=== PATIENT | female | born 1945 | race Caucasian/White ===

== ENCOUNTER 2019-09-04 20:21 | Inpatient (IN) | payer MEDICARE, OTHER, SELFPAY ==
[2019-09-04 20:25] VITALS: BP 130/108; PULSE 103; RESP 14; TEMP 36.8; O2SAT 95; BMI 23.8
--- NOTE | 2019-09-04 20:26 | ED_ITS ---
Entered by Kristin Urena, acting as scribe for HPI - Altered Mental Status General: Chief Complaint: Altered Mental Status Stated Complaint: ams Time Seen by Provider: 09/04/19 20:26 Source: family Mode of arrival: wheelchair Limitations: altered mental status History of Present Illness: HPI narrative: 74 yo f came to the er with pov for altered mental status and syncope episode. 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 said that she has not really been responsive, he is not sure if he had a seizure or had a syncope episode. Pt has had some difficulty breathing on arrival. is adamant about her getting narcotics. She takes various narcotics at home regularly and fax it he said this began about an hour to an hour and a half after her last dose of Percocet which was 30 mg. Review of Systems General: Reports: ROS unobtainable due to mental status and other (negative unless marked) Const: Denies: fever Eyes: Denies: change in vision Resp: Reports: shortness of breath Skin/Breast: Denies: rash PFSH ED PFSH: Medical History (Updated 09/07/19 @ 17:34 by Adam Sy DO) Carotid atherosclerosis Coronary artery disease Diabetes mellitus Diastolic heart failure GERD (gastroesophageal reflux disease) History of hepatitis A History of Lyme disease HTN (hypertension) Hyperlipidemia Sleep apnea Sleep apnea due to high altitude DELETE Steatohepatitis Witnessed seizure Surgical History S/P angioplasty S/P appendectomy S/P bladder repair S/P hysterectomy S/P oophorectomy S/P rotator cuff repair Family History Father , Lung Cancer age 56 Cancer Mother , Pancreatic Cancer age 34 Cancer Social History Smoking and tobacco status: former smoker Physical Exam Const: GENERAL APPEARANCE: combative, disheveled, lethargic and frail appearing ORIENTATION/CONSCIOUSNESS: Yes lethargic OTHER: Appears postictal HENMT: COMMON NORMALS: normocephalic, head/scalp atraumatic, hearing grossly normal bilaterally, external ears normal, EAC's normal, TM's normal bilaterally, nasal mucous membranes and turbinates normal, moist oral mucous membranes and oropharynx normal HEAD & SCALP: normocephalic and atraumatic NOSE: nasal mucous membranes and turbinates normal EXTERNAL EAR: Yes external ears normal EXTERNAL AUDITORY CANAL: EAC's normal TYMPANIC MEMBRANE: TM's normal bilaterally Eye: COMMON NORMALS: PERRL, EOMs intact bilaterally, conjunctivae normal and no scleral icterus CONJUNCTIVA: Yes conjunctivae normal PUPIL: Yes PERRL Neck/C-Spine: COMMON NORMALS: full ROM, no lymphadenopathy, supple and no JVD Lymph: LYMPHATIC: no lymphadenopathy noted and no lymphedema noted Resp: COMMON NORMALS: normal respiratory effort, no retractions, no use of accessory muscles and clear to auscultation bilaterally AUSCULTATION: clear to auscultation bilaterally Cardio: COMMON NORMALS: no JVD, regular rate, regular rhythm and no murmurs RATE: regular rate RHYTHM: regular rhythm GI: COMMON NORMALS: soft to palpation and no hepatosplenomegaly AUSCULTATION: Yes normoactive bowel sounds PALPATION: Yes soft, No tender, No guarding and Yes no hepatosplenomegaly Extremity: COMMON NORMALS: normal to inspection, normal capillary refill, no clubbing, cyanosis or edema, no calf tenderness and no pedal edema Neuro: SENSORIUM/ORIENTATION: Yes lethargic Skin: COMMON NORMALS: no rashes or lesions noted GENERAL SKIN EXAM: no rashes or lesions noted Course ED course: While we are completing work-up patient had a witnessed seizure. She is sitting on the commode at the time she is placed back into bed and given 2 mg Ativan and loaded with Keppra. She will be admitted for new onset seizures. Suspicious that her narcotic use may play a role in this. Vital Signs: Vital signs: Vital Signs Temperature 98.6 F 09/07/19 15:27 Pulse Rate 88 09/07/19 15:27 Respiratory Rate 16 09/07/19 15:27 Blood Pressure 119/68 09/07/19 15:27 Pulse Oximetry 98 09/07/19 15:27 MDM - Altered Mental Status Lab Data: Labs: Lab Results 09/04/19 09/04/19 09/04/19 Range/Units 00:26 20:31 20:39 WBC (4.0-10.0) 10^3/ uL RBC (4.1-5.3) 10^6/u L Hgb (11.5-15.3) g/dL Hct (37.0-47.0) % MCV (81-99) fL MCH (28.0-34.0) pg MCHC (30.0-36.0) g/dL RDW (12.1-15.1) % Plt Count (130-400) 10^3/c mm MPV (7.4-10.4) fL Neut % (Auto) % Lymph % (Auto) % Irion % (Auto) % Eos % (Auto) % Baso % (Auto) % Neut # (Auto) (1.8-7.7) 10^3/u L Lymph # (Auto) (0.8-4.8) 10^3/u L Irion # (Auto) (0.2-0.9) 10^3/u L Eos # (Auto) (0.0-0.8) 10^3/u L Baso # (Auto) (0.0-0.1) 10^3/u L Nucleated RBC % (a uto) % Nucleated RBCs # /100WBC Specimen Type Arterial Sample Site Radial, right ABG pH 7.43 (7.35-7.45) ABG pCO2 33.7 L (35-45) mmHg ABG pO2 93.7 (80.0-100.0) mmH g ABG HCO3 22.5 (22-26) mmol/L ABG O2 Saturation 97.8 ABG Base Excess -1.3 (-2.0-2.0) mmol/ L Moses Test N/a A-a O2 Gradient 12.8 H (5-10) mmHg Hematocrit 33.3 L (37-47) % Hgb O2 Saturation 96.9 (95-100) % Carboxyhemoglobin 1.0 (0.4-20.1) %THgb Total Hemoglobin 10.9 L (12-16) g/dL Sodium 135.0 (131-143) mmol/L Potassium 4.3 (3.5-5.0) mmol/L Glucose 210.0 H (70-115) mg/dL Ionized Calcium 1.2 (1.1-1.4) mmol/L O2 Delivery Device Room air Entertainment Lawyer ID harkr Chloride (98-107) mmol/L Carbon Dioxide (22-29) mmol/L Anion Gap (5-19) BUN (8-23) mg/dL Creatinine (0.5-0.9) mg/dL POC Glucose 171 (70-110) mg/dL Calculated Osmolal ity (285-295) mOsm/k g Calcium (8.5-10.5) mg/dL Total Bilirubin (0.15-1.2) mg/dL AST (0-32) U/L ALT (0-33) U/L Alkaline Phosphata se (35-105) IU/L Total Protein (6.6-8.7) g/dL Albumin (3.5-5.2) g/dL Globulin (1.3-4.6) g/dL TSH 2.41 (0.27-4.20) uIU/ mL Urine Color (Yellow) Urine Appearance (CLEAR) Urine pH (5-7) Ur Specific Gravit y (1.005-1.030) Urine Protein (Negative) Urine Glucose (UA) (Normal) Urine Ketones (Negative) Urine Blood (Negative) Urine Nitrate (Negative) Urine Bilirubin (NEGATIVE) Urine Urobilinogen (Negative) mg/dL Ur Leukocyte Delphine ase (Negative) Urine RBC (0-2) /hpf Urine WBC (0-5) /hpf Ur Squamous Epith Cells (0-5) Urine Bacteria (NONE) 09/04/19 09/04/19 09/04/19 Range/Units 21:20 21:25 21:25 WBC 12.3 H (4.0-10.0) 10^3/ uL RBC 4.59 (4.1-5.3) 10^6/u L Hgb 11.3 L (11.5-15.3) g/dL Hct 39.4 (37.0-47.0) % MCV 85.8 (81-99) fL MCH 24.6 L (28.0-34.0) pg MCHC 28.7 L (30.0-36.0) g/dL RDW 16.1 H (12.1-15.1) % Plt Count 297 (130-400) 10^3/c mm MPV 10.0 (7.4-10.4) fL Neut % (Auto) 81.2 % Lymph % (Auto) 13.4 % Irion % (Auto) 3.6 % Eos % (Auto) 0.4 % Baso % (Auto) 0.7 % Neut # (Auto) 10.0 H (1.8-7.7) 10^3/u L Lymph # (Auto) 1.7 (0.8-4.8) 10^3/u L Irion # (Auto) 0.4 (0.2-0.9) 10^3/u L Eos # (Auto) 0.1 (0.0-0.8) 10^3/u L Baso # (Auto) 0.1 (0.0-0.1) 10^3/u L Nucleated RBC % (a uto) 0 % Nucleated RBCs # 0.0 /100WBC Specimen Type Sample Site ABG pH (7.35-7.45) ABG pCO2 (35-45) mmHg ABG pO2 (80.0-100.0) mmH g ABG HCO3 (22-26) mmol/L ABG O2 Saturation ABG Base Excess (-2.0-2.0) mmol/ L Moses Test A-a O2 Gradient (5-10) mmHg Hematocrit (37-47) % Hgb O2 Saturation (95-100) % Carboxyhemoglobin (0.4-20.1) %THgb Total Hemoglobin (12-16) g/dL Sodium 134 L (131-143) mmol/L Potassium 3.6 (3.5-5.0) mmol/L Glucose 220 H (70-115) mg/dL Ionized Calcium (1.1-1.4) mmol/L O2 Delivery Device Entertainment Lawyer ID Chloride 92 L (98-107) mmol/L Carbon Dioxide 17 L (22-29) mmol/L Anion Gap 28.6 H (5-19) BUN 21 (8-23) mg/dL Creatinine 1.2 H (0.5-0.9) mg/dL POC Glucose (70-110) mg/dL Calculated Osmolal ity 281 L (285-295) mOsm/k g Calcium 9.8 (8.5-10.5) mg/dL Total Bilirubin 0.6 (0.15-1.2) mg/dL AST 17 (0-32) U/L ALT 9 (0-33) U/L Alkaline Phosphata se 77 (35-105) IU/L Total Protein 7.5 (6.6-8.7) g/dL Albumin 3.8 (3.5-5.2) g/dL Globulin 3.7 (1.3-4.6) g/dL TSH (0.27-4.20) uIU/ mL Urine Color Yellow (Yellow) Urine Appearance Hazy A (CLEAR) Urine pH 5 (5-7) Ur Specific Gravit y 1.020 (1.005-1.030) Urine Protein 3+ H (Negative) Urine Glucose (UA) Norm (Normal) Urine Ketones 1+ H (Negative) Urine Blood 3+ H (Negative) Urine Nitrate Negative (Negative) Urine Bilirubin Neg (NEGATIVE) Urine Urobilinogen Norm (Negative) mg/dL Ur Leukocyte Delphine ase Negative (Negative) Urine RBC 10-15 H (0-2) /hpf Urine WBC 10-15 H (0-5) /hpf Ur Squamous Epith Cells None (0-5) Urine Bacteria 4+ H (NONE) Discharge Plan Discharge Patient Disposition: Admitted As Inpatient Admit Provider: Leyla Bhatia Clinical Impression: Witnessed seizure, Post-ictal state, Delirium due to another medical condition Condition: Stable Interventions: ED Discharge Assessment Last Done: 09/04/19 23:42 Discharge Date/Time: 09/04/19 23:42 Coding Level of Care Code ED Ship Steward for Sendy Perez The documentation recorded by the Romel gipson Stephanie Lyn, accurately reflects the service I personally performed and the decisions made by Yossi arreguin Curtis L, DO Sep 04, 2019 20:21
--- NOTE | 2019-09-04 20:37 | CTR_ITS ---
PROCEDURE INFORMATION: Exam: CT Head Without Contrast Exam date and time: 09/04/2019 9:08 PM Age: 74 years old Clinical indication: Altered mental status/memory loss; Additional info: AMS. Loc TECHNIQUE: Imaging protocol: Computed tomography of the head without contrast. Total DLP: 878.31 mGy-cm Radiation optimization: All CT scans at this facility use at least one of these dose optimization techniques: automated exposure control; mA and/or kV adjustment per patient size (includes targeted exams where dose is matched to clinical indication); or iterative reconstruction. COMPARISON: CT head wo con* [id number] 05/17/2018 4:29 PM FINDINGS: Brain: No acute intracranial hemorrhage or mass effect. Old infarcts again seen in the left occipital lobe and right cerebellar hemisphere, not significantly changed. No definite acute infarct by CT. MRI could be more sensitive/specific for detection, as clinically directed. Ventricles: Ventricle size is normal for age. Bones/joints: No definite acute skull fracture. Sinuses: Moderate mucosal thickening in the right maxillary sinus. Mild mucosal thickening in the ethmoid and frontal sinuses. Mastoid air cells: No significant acute finding. Vasculature: Vascular calcifications in the internal carotid and vertebral basilar systems. CT/CT head wo con* [id number] IMPRESSION: 1. No acute intracranial hemorrhage or mass effect. 2. Old infarcts, see above. 3. No definite acute infarct by CT, see above discussion. 4. Other findings discussed above. Radiation Dose CTDIVOL = (mGy): DLP = 878.31 (mGy-cm)
--- NOTE | 2019-09-04 20:38 | XR_ITS ---
WS: [id number] XR chest 1V portable [id number] REASON FOR EXAM: dyspnea/cough FINDINGS: Gross cardiomegaly is seen with arteriosclerotic changes. There is mild interstitial pulmon maury edema bilaterally. There is no pneumonia pleural effusion pneumothorax seen. The hilum and apices normal. XR/XR chest 1V portable [id number] IMPRESSION: Gross cardiomegaly with arteriosclerotic changes Mild interstitial pulmonary edema.
[2019-09-04 20:40] LABS: ABG PCO2 33.7 mmHg (35-45); ABG PH Result 7.43 (7.35-7.45); Alveolar-Arterial Oxygen Gradi 12.8 mmHg (5-10); Arterial Blood Gas Hematocrit 33.3 % (37-47); Base Excess ABG -1.3 mmol/L (-2.0-2.0); Blood Gas Sample Site Radial, right; Blood Gas Sample Type Arterial; HCO3 ABG 22.5 mmol/L (22-26); HGB O2 Sat 96.9 % (95-100); Ionized Calcium Level - ABG 1.2 mmol/L (1.1-1.4); Oxygen Device ROOM AIR; Oxygen Saturation ABG 97.8; PO2 ABG 93.7 mmHg (80.0-100.0); Potassium Level - ABG 4.3 mmol/L (3.5-5.0); Total Hemoglobin 10.9 g/dL (12-16)
[2019-09-04] MEDS: LORazepam 2 mg/mL INJ 1 mL 1 MG IVP (21:25)
--- NOTE | 2019-09-04 21:31 | PC.PHAR ---
PT'S STATES SHE ALSO TAKES SOME TYPE OF DANDELION SUPPLIMENT. I WAS UNABLE TO FIND IT ON ANY LIST.
[2019-09-04 21:35] LABS: Basophils # 0.1 10^3/uL (0.0-0.1); Basophils % 0.7 %; Eosinophils # 0.1 10^3/uL (0.0-0.8); Eosinophils % 0.4 %; Hematocrit 39.4 % (37.0-47.0); Hemoglobin 11.3 g/dL (11.5-15.3); Lymphocytes # 1.7 10^3/uL (0.8-4.8); Lymphocytes % 13.4 %; Mean Corpuscular HGB Conc 28.7 g/dL (30.0-36.0); Mean Corpuscular Hemoglobin 24.6 pg (28.0-34.0); Mean Corpuscular Volume 85.8 fL (81-99); Monocytes # 0.4 10^3/uL (0.2-0.9); Monocytes % 3.6 %; Neutrophils % 81.2 %; Nucleated Red Blood Cells % 0 %; Platelet Count 297 10^3/cmm (130-400); Red Blood Count 4.59 10^6/uL (4.1-5.3); Red Cell Distribution Width 16.1 % (12.1-15.1); White Blood Count 12.3 10^3/uL (4.0-10.0)
[2019-09-04 21:49] LABS: Urine Appearance Hazy (CLEAR); Urine Color Yellow (Yellow); pH Urine 5 (5-7)
[2019-09-04 21:50] LABS: Add Urine Microscopic? YES; Bilirubin Urine Neg (NEGATIVE); Blood Urine 3+ (Negative); Glucose Urine UA Norm (Normal); Ketones Urine 1+ (Negative); Leukocyte Esterase Urine Negative (Negative); Nitrate Urine Negative (Negative); Protein Urine 3+ (Negative); Urobilinogen Urine Norm (Negative)
[2019-09-04 21:51] LABS: Alanine Aminotransferase 9 U/L (0-33); Albumin Level 3.8 g/dL (3.5-5.2); Alkaline Phosphatase 77 IU/L (35-105); Anion Gap 28.6 (5-19); Aspartate Amino Transferase 17 U/L (0-32); Blood Urea Nitrogen 21 mg/dL (8-23); Calcium 9.8 mg/dL (8.5-10.5); Carbon Dioxide 17 mmol/L (22-29); Chloride 92 mmol/L (98-107); Globulin 3.7 g/dL (1.3-4.6); Glucose 220 mg/dL (65-115); Osmolality Calculated 281 mOsm/kg (285-295); Potassium 3.6 mmol/L (3.5-5.1); Sodium 134 mmol/L (136-145); Total Bilirubin 0.6 mg/dL (0.15-1.2); Total Protein 7.5 g/dL (6.6-8.7)
[2019-09-04 21:56] LABS: Add Urine Culture? Yes; Bacteria Urine 4+
[2019-09-04] MEDS: sodium chloride 0.9% 1,000 ML 999 ML IV (22:30)
--- NOTE | 2019-09-04 23:40 | PC.NURSE ---
I/O mcneil initial output 400cc
[2019-09-04 23:42] VITALS: BP 141/108; PULSE 122; RESP 22; O2SAT 96
[2019-09-05] VITALS (53 sets, daily range): BP systolic 143–175; BP diastolic 76–135; PULSE 94–129; RESP 0–47; TEMP 36.6–37.9; O2SAT 90–98
--- NOTE | 2019-09-05 00:09 | P.HP_ITS ---
Providers/Chief Complaint Admitting Physician: Leyla Bhatia MD Primary Care Provider: Baljit Aponte APN Chief Complaint: ams History of Present Illness History is obtained from notes review and by discussion with ER physician. Gaviota Danielle is a 74 year old female with a past medical history of CAD, hypertension, peripheral vascular disease, asthma, seizures, CVA, chronic back pain, arthritis, type 2 diabetes who presented to the ER today with an episode of seizures. Per report the patient was in her usual state of health until about 5 or 6 PM this evening when a few hours after getting her regularly taken oxycodone 30 mg she developed stiffening movement concerning for seizures and was brought into the ED. Upon arrival here she was alert and oriented at first and was able to transfer from bed to chair, then at around 9:30 PM she was noted to have a generalized tonic-clonic seizure in the ER after which she received Ativan and has been sedated since then. There is no history of tongue bite. No history of fecal or urinary incontinence. Per notes reviewed she had a similar episode in 04/2018. CT of the head was obtained which is without any acute intracranial ab normalities. It does not appear that she is on any antiseizure medications at home. It appears per notes reviewed the patient also has a history of large pericardial effusion for which pericardiocentesis was considered at one point, however patient elected to try diuretics only by way of Bumex. I do not see any diuretics on her current list of medications. Previous attempts to wean her off of opiates have been unsuccessful. Vital signs of present time are with tachycardia with heart rate up to 122, blood pressure 173/107, afebrile, O2 sat 3 L/min and 92% nasal cannula. WBC initially at 12.3 trending down to 10.7. ABG with pH of 7.43, 33.7, 93.7, 22.5 on room air. Sodium of 134. Bicarb 17. Creatinine of 1.2 with a baseline of around 0.9. Glucose is 220, initial fingerstick on presentation 166. Lactic acid elevated at 4.2. UA with few WBCs, however negative nitrate and leukoeste rase. Of note this was a traumatic Norris placement. Review of Systems General: Reports: ROS unobtainable due to medical condition and ROS unobtainable due to mental status Medications/Allergies Home Medications Medication Instructions Recorded Confirmed Last Taken Type folic acid 20 mg PO DAILY 09/04/19 09/04/19 09/04/19 History ginkgo biloba 120 mg PO BID 09/04/19 09/04/19 09/04/19 History [place] 500 mg PO DAILY 09/04/19 09/04/19 09/04/19 History Allergies Allergy/AdvReac Type Severity Reaction Status Date / Time amoxicillin Allergy Unknown Unknown Verified 08/07/19 10:26 aspirin Allergy Unknown Unknown Verified 08/07/19 10:26 fluoxetine [From Prozac] Allergy Unknown Unknown Verified 08/07/19 10:26 lisinopril Allergy Unknown Unknown Verified 08/07/19 10:26 losartan Allergy Unknown Unknown Verified 08/07/19 10:26 olmesartan [From Benicar] Allergy Unknown Unknown Verified 08/07/19 10:26 simvastatin Allergy Unknown Unknown Verified 08/07/19 10:26 Sulfa (Sulfonamide Allergy Unknown Unknown Verified 08/07/19 10:26 Antibiotics) terazosin Allergy Unknown Unknown Verified 08/07/19 10:26 PFSH Acute PFSH: Medical History Carotid atherosclerosis Coronary artery disease Diabetes mellitus Diastolic heart failure GERD (gastroesophageal reflux disease) History of hepatitis A History of Lyme disease HTN (hypertension) Hyperlipidemia Sleep apnea Sleep apnea due to high altitude DELETE Steatohepatitis Surgical History S/P angioplasty S/P appendectomy S/P bladder repair S/P hysterectomy S/P oophorectomy S/P rotator cuff repair Family History Father , Lung Cancer age 56 Cancer Mother , Pancreatic Cancer age 34 Cancer Social History Smoking and tobacco status: former smoker Vitals/I&O/Wt Last Vital Signs Temp 98.3 F 09/04/19 20:25 Pulse 122 H 09/04/19 23:42 Resp 22 H 09/04/19 23:42 BP 141/108 09/04/19 23:42 Pulse Ox 96 09/04/19 23:42 Weight last 48 hrs Weight 63.049 kg Physical Exam Narrative: EXAM NARRATIVE: GEN: Lethargic, drowsy recently received Ativan after an episode of seizure. Does not wake up to calling name. However she is agitated and pulling on numerous IV lines in her Norris catheter. CVS: S1S2 N RS: CTA B/L , occasionally conducted sounds with patient snoring. Abd: Soft, nt/nd , bs+ BOTTLE BLOWING MACHINE TENDER: As above. Moving all extremities while laying in bed. Urinary Catheter Management^: Norris: Cath Placed During This Visit: yes Reason for Continuing Indwelling Catheter: Accurate Measurement of Urinary Output in Critically Ill Patients Urinary Catheter Date of Insertion: 09/04/19 Urinary Catheter Time of Insertion: : Data : 09/05/19 02:02 09/04/19 21: Micro: Microbiology 09/04/19 21:26 Blood Culture - Preliminary Blood SPECIMEN COLLECTED 09/04/19 21:25 Blood Culture - Preliminary Blood SPECIMEN COLLECTED Other data: Echocardiogram from April 2018 CONCLUSIONS 1-Moderately increased left ventricular cavity size. Moderately decreased left ventricular systolic function. Left ventricular ejection fraction is estimated at 45 %.There is global hypokinesis 3- There is appeared to be mild to moderate pericardial effusion circumferentially. There is a pocket of moderate pericardial effusion in front of right atrium. There is no right atrium and right ventricular collapse in the diastole. There is no respirophasic variation of mitral inflow. This pericardial effusion is of no hemodynamic significance . 3-Normal right ventricular size. Mild pulmonary hypertension, RVSP 29.8 mmHg. 4-Severely thickened mitral valve. Severe mitral annular calcification. No mitral valve stenosis. Moderate mitral valve regurgitation. 5-Normal right ventricular size. Mild pulmonary hypertension, RVSP 29.8 mmHg. 6-. When compared to the prior echocardiogram dated 07/17/2017 left ventricle function has moderately reduced from normal 55% to 45% now. There appeared to be mild to moderate pericardial effusion of no hemodynamic significance. [address] [address] [address] Scan Report Signed Patient: Gaviota Danielle #: [id number] : 4Acct#:[id number] Age/Sex: 74 / FADM Date: 09/04/19 Loc: ERRoom/Bed: Attending Dr: Ordering Provider/Ordering MD: Adam Sy DO Date of Service: 09/04/19 Procedure(s): CT head wo con* [id number] Accession Number(s): [id number] Report Number: [id number] PROCEDURE INFORMATION: Exam: CT Head Without Contrast Exam date and time: 09/04/2019 9:08 PM Age: 74 years old Clinical indication: Altered mental status/memory loss; Additional info: AMS. Loc TECHNIQUE: Imaging protocol: Computed tomography of the head without contrast. Total DLP: 878.31 mGy-cm Radiation optimization: All CT scans at this facility use at least one of these dose optimization techniques: automated exposure control; mA and/or kV adjustment per patient size (includes targeted exams where dose is matched to clinical indication); or iterative reconstruction. COMPARISON: CT head wo con* [id number] 05/17/2018 4:29 PM FINDINGS: Brain: No acute intracranial hemorrhage or mass effect. Old infarcts again seen in the left occipital lobe and right cerebellar hemisphere, not significantly changed. No definite acute infarct by CT. MRI could be more sensitive/specific for detection, as clinically directed. Ventricles: Ventricle size is normal for age. Bones/joints: No definite acute skull fracture. Sinuses: Moderate mucosal thickening in the right maxillary sinus. Mild mucosal thickening in the ethmoid and frontal sinuses. Mastoid air cells: No significant acute finding. Vasculature: Vascular calcifications in the internal carotid and vertebral basilar systems. CT/CT head wo con* [id number] IMPRESSION: 1. No acute intracranial hemorrhage or mass effect. 2. Old infarcts, see above. 3. No definite acute infarct by CT, see above discussion. 4. Other findings discussed above. A&P Assessment and plan (1) Witnessed seizure: Status: Acute Code(s): R56.9 - Unspecified convulsions (2) Post-ictal state: Status: Acute Code(s): R56.9 - Unspecified convulsions (3) Delirium due to another medical condition: Status: Acute Code(s): F05 - Delirium due to known physiological condition (4) Diastolic CHF: Status: Acute Code(s): I50.30 - Unspecified diastolic (congestive) heart failure (5) Pericardial effusion: Status: Acute Code(s): I31.3 - Pericardial effusion (noninflammatory) (6) Lactic acidosis: Status: Acute Code(s): E87.2 - Acidosis Additional A&P Information Admit to ICU in view of seizures. 1 witnessed tonic-clonic seizures in the ED. Now resolved after giving Ativan. Loaded with Keppra . Thousand milligrams in the ED and now ordered for 1 g twice daily. Patient continues to be drowsy, intermittently with delirium agitated most l ikely secondary to postictal state. cause of seizures unclear at this time. Ct head without acute issues. U tox is negative. Electrolytes are within normal range. There is some degree of lactic acidosis however no current signs or symptoms of infection seem apparent. This is likely 2/2 seizures. Check CPK to r/o rhabdomyolysis Patient was reported to be in her normal state of health just prior to onset of the first seizure, therefore doubt etiology such as meningitis. If continues to have prolonged obtundation, may need intubation for airway protection hold home doses of opiates for now #2 history of diastolic CHF Stat troponin series to r/o primary cardiac event Patient has a past history of CHF with EF of 45% and global hypokinesia with moderate pericardial effusion. Cardiomegaly still evident on chest x-ray, will order echocardiogram Check BNP Currently appears to be clinically euvolemic, gentle iv hydration @ 50cc/hr given h/o dCHF #3 DM: insulin sliding scale. full code ppx: heparin Attestations Medical Necessity Statement*: anticipate >2 midnight admission for evaluation of seizures Coding Level of Care Code Acute Switch Crew Supervisor for [facility] Fwd Diagnoses Witnessed seizure R56.9 Post-ictal state R56.9 Delirium due to another medical condition F05 Diastolic CHF I50.30 Pericardial effusion I31.3 Lactic acidosis E87.2
[2019-09-05] MEDS: LORazepam 2 mg/mL INJ 1 mL IVP ×2 (00:56→05:19)
[2019-09-05] MEDS: heparin 5,000 unit/mL INJ 1 mL 5000 UNIT SUBCUT ×3 (00:58→23:43)
[2019-09-05 01:37] LABS: Thyroid Stimulating Hormone 2.41 uIU/mL (0.27-4.20)
[2019-09-05] MEDS: dextrose 5%-sod chloride 0.45% 1,000 ML 75 ML IV (01:44)
[2019-09-05 02:19] LABS: Basophils # 0.1 10^3/uL (0.0-0.1); Basophils % 0.5 %; Eosinophils % 0.1 %; Hemoglobin 11.5 g/dL (11.5-15.3); Lymphocytes # 0.9 10^3/uL (0.8-4.8); Lymphocytes % 8.8 %; Mean Corpuscular HGB Conc 29.5 g/dL (30.0-36.0); Mean Corpuscular Hemoglobin 24.2 pg (28.0-34.0); Mean Corpuscular Volume 82.1 fL (81-99); Mean Platelet Volume 9.7 fL (7.4-10.4); Monocytes # 0.2 10^3/uL (0.2-0.9); Monocytes % 2.1 %; Neutrophils # 9.4 10^3/uL (1.8-7.7); Neutrophils % 87.8 %; Nucleated Red Blood Cells % 0 %; Platelet Count 291 10^3/cmm (130-400); Red Blood Count 4.75 10^6/uL (4.1-5.3); Red Cell Distribution Width 16.2 % (12.1-15.1); White Blood Count 10.7 10^3/uL (4.0-10.0)
--- NOTE | 2019-09-05 02:20 | USCV_ITS ---
Gaviota Danielle Age: 74 Gender: F : 1945 Exam Date: 09/05/2019 08:38 Ordering Phys: Leyla Bhatia MD Technologist: Kathleen Campbell Exam Location[place] [facility] [place]ication: PERICARDIAL EFFUSION BP: 149 / 74 HR: 105 Rhythm: Sinus Technical Quality: Adequate MEASUREMENTS (Male / Female) Normal Values 2D ECHO LV Diastolic Diameter PLAX 4.5 cm 4.2 - 5.9 / 3.9 - 5.3 cm LV Systolic Diameter PLAX 3.7 cm LV Chamber Size 4.0 cm IVS Diastolic Thickness 1.2 cm 0.6 - 1.0 / 0.6 - 0.9 cm IVS Systolic Thickness 1.6 cm LVPW Diastolic Thickness 1.5 cm 0.6 - 1.0 / 0.6 - 0.9 cm LVPW Systolic Thickness 1.8 cm RV Chamber Size 3.2 cm LVOT Diameter 2.0 cm LV Ejection Fraction 2D Teich 37.8 % LV Ejection Fraction MOD 2C 28.3 % LV Ejection Fraction 2C AL 27.2 % LA Diameter 3.5 cm LA Width 3.6 cm LA Height 4.5 cm RA Width 3.3 cm RA Height 5.2 cm Aorta at Sinotubular Diameter 3.2 cm M-MODE LV Diastolic Diameter MM 5.0 cm 4.2 - 5.9 / 3.9 - 5.3 cm LV Systolic Diameter MM 3.5 cm LV Ejection Fraction MM Teich 55.4 % IVS Diastolic Thickness MM 0.9 cm 0.6 - 1.0 / 0.6 - 0.9 cm IVS Systolic Thickness MM 1.3 cm LVPW Diastolic Thickness MM 0.5 cm 0.6 - 1.0 / 0.6 - 0.9 cm LVPW Systolic Thickness MM 1.8 cm RV Diastolic Diameter MM 1.3 cm Aortic Annulus Diameter 3.3 cm LA Ao Ratio MM 1.1 MV E Point Septal Separation 0.9 cm DOPPLER AV Peak Velocity 123.0 cm/s LVOT Peak Velocity 77.0 cm/s AV Area Cont Eq vti 2.6 cm squared AV Area Cont Eq pk 2.1 cm squared MV Area PHT 3.7 cm squared MV E' Velocity 7.0 cm/s Mitral E to MV E' Ratio 20.3 Mitral E to LV E' Lateral Ratio 20.0 Mitral E to LV E' Septal Ratio 20.5 TR Peak Velocity 341.3 cm/s TR Peak Gradient 46.6 mmHg TR Mean Velocity 229.1 cm/s TR Mean Gradient 24.7 mmHg TR Velocity Time Integral 107.9 cm TV Peak E Velocity 80.0 cm/s Right Atrial Pressure 15.0 mmHg Pulmonary Artery Systolic Pressu 61.6 mmHg PV Peak Velocity 94.0 cm/s FINDINGS Left Ventricle Left ventricular ejection fraction is estimated at 30 %. Moderately increased left ventricular cavity size. Moderately decreased left ventricular systolic function. Global left ventricular hypokinesis. Right Ventricle Mildly increased right ventricular size. Moderately decreased right ventricular systolic function. Severe pulmonary hypertension. Right Atrium Severely increased right atrial size. Left Atrium Severely increased left atrial size. Mitral Valve Mitral valve not well visualized. Severely thickened mitral valve. Severe mitral annular calcification. No mitral valve stenosis. Mild mitral valve regurgitation. Aortic Valve No aortic valve stenosis. Thickened aortic valve. No aortic valve regurgitation. Tricuspid Valve Mild tricuspid valve regurgitation. Tricuspid valve not well visualized. Severe pulmonary hypertension with RVSP 61 mmHg Pulmonic Valve Pulmonic valve not well visualized. Pericardium Moderate pericardial effusion. No tamponade noted Aorta Aorta not well visualized. CONCLUSIONS Abnormal left ventricular size and function with an estimated ejection fraction of 30%. Severe pulmonary hypertension by TR jet, estimated PA pressure of 61 mm Hg. No significant valvular stenosis Mild mitral regurgitation Small to moderate pericardial effusion Technically difficult study because of the poor ultrasonic window. Vickie Rosenberg MD (Electronically Signed) Final Date: 05 September 2019 10:12 S
[2019-09-05 02:26] LABS: Alanine Aminotransferase 11 U/L (0-33); Albumin Level 3.4 g/dL (3.5-5.2); Alkaline Phosphatase 82 IU/L (35-105); Anion Gap 23.3 (5-19); Aspartate Amino Transferase 25 U/L (0-32); Blood Urea Nitrogen 19 mg/dL (8-23); Calcium 9.4 mg/dL (8.5-10.5); Carbon Dioxide 20 mmol/L (22-29); Chloride 97 mmol/L (98-107); Globulin 4.2 g/dL (1.3-4.6); Glucose 252 mg/dL (65-115); Osmolality Calculated 287 mOsm/kg (285-295); Potassium 4.3 mmol/L (3.5-5.1); Sodium 136 mmol/L (136-145); Total Bilirubin 0.7 mg/dL (0.15-1.2); Total Protein 7.6 g/dL (6.6-8.7)
[2019-09-05 02:29] LABS: Troponin T (5th) Once 60 ng/mL (0-10)
[2019-09-05 02:31] LABS: Lactic Sepsis W/Reflex 5.7 mmol/L (0.5-2.2)
[2019-09-05 02:53] LABS: Amphetamines Screen Urine Negative (Negative); Barbiturates Screen Urine Negative (Negative); Benzodiazepines Screen Urine Positive (Negative); Cocaine Screen Urine Negative (Negative); Opiate Screen Urine Positive (Negative); PCP Screen Urine Negative (Negative); THC Screen Urine Negative (Negative)
[2019-09-05 03:03] LABS: Creatine Phosphokinase 99 U/L (26-192); NT Pro B Type Natriuretic Pept 14810 pg/mL (0-450)
[2019-09-05 03:55] LABS: Reflex Lactate Order REFLEX LACTIC ORDERD
[2019-09-05] MEDS: FUROsemide 10 mg/mL SDV 4mL 40 MG IVP ×3 (05:52→23:44)
[2019-09-05] MEDS: cefTRIAXone 1,000 MG in sodium chloride 0.9% (plus) 50 ML 100 MG IV (05:56)
[2019-09-05] MEDS: hyDRALAzine 20 mg/mL INJ 1 mL 5 MG IVP ×2 (06:05→11:44)
[2019-09-05 06:17] LABS: Lactic Acid level (Lactate) 3.4 mmol/L (0.5-2.2)
[2019-09-05 06:19] LABS: Troponin T (5th) Once 85 ng/mL (0-10)
--- NOTE | 2019-09-05 10:34 | P.PN_ITS ---
Subjective Subjective: Interval history: Patient seen and examined, chart reviewed, and sitter at bedside. Patient resting in bed, intermittently restless, has not been consistently awake or alert so continue NPO status. Per , patient takes bernarda woods and dandelion herbal supplements which keeps her atrial fibrillation and CHF symptoms under control. He would like this resumed when patient can tolerate oral intake. Has had good output today, total of 3750 mL since admission, with loss of 2.4 L. Of note, she is s/p LLE BKA secondary to what sounds like PVD. Medications: Reviewed: Yes Medication Review Details: Active Medications Generic Name Dose Route Start Last Admin Trade Name Freq PRN Reason Stop Dose Admin Acetaminophen 650 mg 09/05/19 00:50 Tylenol PO Q6H PRN Mild/Mod Pain Or Temp >/= 101 Dextrose 25 ml 09/04/19 23:54 D50w IVP ONCE PRN hypoglycemia prot ocol Protocol Dextrose 50 ml 09/04/19 23:54 D50w IVP PRN PRN hypoglycemia prot ocol Protocol Furosemide 40 mg 09/05/19 11:45 09/05/19 13:06 Lasix IVP 40 mg Q12H DIANE Administration Glucagon 1 mg 09/04/19 23:54 Glucagen IM ONCE PRN Adult Acute Hypog lycemia Prot. Protocol Heparin Sodium (Be ef Lung) 5,000 unit 09/04/19 23:45 09/05/19 11:31 Heparin SUBCUT 5,000 unit Q12H DIANE Administration Hydralazine HCl 5 mg 09/04/19 23:59 09/05/19 11:44 Apresoline IVP 5 mg Q4H PRN Administration SBP>160 Levetiracetam 1,00 0 mg/ Sodium 110 mls @ 440 mls /hr 09/04/19 21:30 09/05/19 09:15 Chloride IV Infused Q12H DIANE Infusion Ceftriaxone Sodium 1,000 mg/ 50 mls @ 100 mls/ hr 09/05/19 05:45 09/05/19 06:59 Sodium Chloride IV Infused Q24H DIANE Infusion Protocol Insulin Aspart 0 unit 09/05/19 08:00 09/05/19 18:27 Novolog SUBCUT 4 unit WM&BEDTIME DIANE Administration Protocol Levothyroxine Sodi um 50 mcg 09/05/19 09:00 09/05/19 08:39 Synthroid PO Not Given DAILY DIANE Lorazepam 2 mg 09/05/19 00:03 09/05/19 05:19 Ativan IVP 2 mg Q4H PRN Administration ANXIETY Metoprolol Tartrat e 2.5 mg 09/05/19 02:18 Metoprolol Tartr ate IV Q4H PRN tachycardia >120 Morphine Sulfate 2 mg 09/04/19 23:54 09/05/19 11:43 Morphine IVP 2 mg Q6H PRN Administration SEVERE PAIN Naloxone HCl 0.1 mg 09/04/19 23:54 Narcan IVP Q2M PRN OPIATERV amoxicillin Allergy (Unknown, Verified 08/07/19 10:26) Unknown aspirin Allergy (Unknown, Verified 08/07/19 10:26) Unknown fluoxetine [From Prozac] Allergy (Unknown, Verified 08/07/19 10:26) Unknown lisinopril Allergy (Unknown, Verified 08/07/19 10:26) Unknown losartan Allergy (Unknown, Verified 08/07/19 10:26) Unknown olmesartan [From Benicar] Allergy (Unknown, Verified 08/07/19 10:26) Unknown simvastatin Allergy (Unknown, Verified 08/07/19 10:26) Unknown Sulfa (Sulfonamide Antibiotics) Allergy (Unknown, Verified 08/07/19 10:26) Unknown terazosin Allergy (Unknown, Verified 08/07/19 10:26) Unknown Vitals/I&O/Wt Last Vital Signs Temp 100.2 F H 09/05/19 05:29 Pulse 105 H 09/05/19 08:48 Resp 26 H 09/05/19 04:10 BP 167/98 09/05/19 04:10 Pulse Ox 95 09/05/19 08:48 09/04/19 09/05/19 09/05/19 22:59 06:59 14:59 Intake Total 1269 / 1269 Output Total 300 / 300 Balance 969 / 969 Weight last 48 hrs Weight 63.049 kg Physical Exam Const: OTHER: -somnolent, difficult to arouse, intermittently restless HENMT: COMMON NORMALS: normocephalic and head/scalp atraumatic HEAD & SCALP: normocephalic and atraumatic MOUTH: moist mucous membranes abnormal Details: parched Eye: COMMON NORMALS: PERRL and conjunctivae normal CONJUNCTIVA: Yes conjunctivae normal PUPIL: Yes PERRL Neck/C-Spine: COMMON NORMALS: full ROM GENERAL: Yes normal visual inspection and Yes trachea midline Resp: COMMON NORMALS: normal respiratory effort, no retractions and no use of accessory muscles EFFORT & INSPECTION: Yes symmetric chest movement and Yes tachypneic AUSCULTATION: crackles OTHER: - mouth breather Cardio: COMMON NORMALS: regular rate, regular rhythm, S1 normal heart sound, S2 normal heart sound and no murmurs RATE: regular rate RHYTHM: regular rhythm HEART SOUNDS: S1 normal and S2 normal GI: COMMON NORMALS: normal to inspection, nondistended, normoactive bowel sounds and soft to palpation PALPATION: Yes soft : BLADDER/KIDNEY EXAM: Yes catheter in place Catheter type (Female): urethral Extremity: COMMON NORMALS: normal to inspection, full ROM and no clubbing, cyanosis or edema; negative for no pedal edema NARRATIVE EXTREMITY EXAM: -s/p LLE BKA Neuro: OTHER: -unable to assess due to somnolence Psych: OTHER: -unable to assess due to somnolence Skin: COMMON NORMALS: no rashes or lesions noted, no jaundice, no petechiae and no mottling GENERAL SKIN EXAM: no rashes or lesions noted Urinary Catheter Management^: Norris: Cath Placed During This Visit: yes Urethral Indwelling: Yes Reason for Continuing Indwelling Catheter: Accurate Measurement of Urinary Output in Critically Ill Patients Urinary Catheter Date of Insertion: 09/04/19 Urinary Catheter Time of Insertion: 21:20 Data : 09/05/19 02:02 09/05/19 02:02 Micro: Microbiology 09/04/19 21:26 Blood Culture - Preliminary Blood SPECIMEN COLLECTED 09/04/19 21:25 Blood Culture - Preliminary Blood SPECIMEN COLLECTED A&P Assessment and plan (1) Witnessed seizure: -Noted to have a witnessed tonic-clonic seizure in ER, reported seizure- like episode at home. No noted AEDs per med list -Mental status remains altered likely secondary to postictal state -Fall, aspiration, seizure precautions -Continue IV Keppra -Noted CT head which is unremarkable for any acute findings -CPK wnl (99), UDS positive for opiates and benzos Status: Acute Code(s): R56.9 - Unspecified convulsions (2) Lactic acidosis: -UA noted to be positive for bacteria, pyuria, hematuria; negative nitrite/LE -continue Ceftriaxone -low grade temp-100.2 F -lactic acidosis also likely due to seizure episodes; trending down (5.7->3.4) -no IVF secondary to CHF exacerbation Status: Acute Code(s): E87.2 - Acidosis (3) Pericardial effusion: -noted to have small to moderate pericardical effusion on Echo, EF-30%, global LV hypokinesis, severe pulmonary HTN -has been noted to have non-hemodynamically significant pericardial effusion on Echo done in 04/2018, opted for medical management with diuretics -received 40 mg dose of IV Lasix overnight; continue diuresis, BNP > 14,000, noted evidence of interstitial edema on imaging -daily weights, monitor Is & Os Status: Acute Code(s): I31.3 - Pericardial effusion (noninflammatory) (4) Post-ictal state: -secondary to seizure episodes -noted above -NPO until mental status improves Status: Acute Code(s): R56.9 - Unspecified convulsions (5) Acute exacerbation of CHF (congestive heart failure): -received 40 mg dose of IV Lasix overnight; continue diuresis, BNP > 14,000, noted evidence of interstitial edema on imaging -daily weights, monitor Is & Os, has Norris catheter, assess daily for removal -Echo noted above -monitor vital signs -telemetry monitoring Status: Acute Qualifiers: Heart failure type: systolic Qualified Code(s): I50.23 - Acute on chronic systolic (congestive) heart failure Code(s): I50.9 - Heart failure, unspecified Additional A&P Information -Peripheral vascular disease; on Plavix, s/p LLE BKA, follows up with Dr. Parikh in [place] -hx of atrial fibrillation; takes bernarda [employer] (V3D) and dandelion herbal supplements for this and CHF -IDDM type II; A1c-12.3 (2012), repeat A1c, accucheks, ISS -CKD stage 2; baseline Cr wnl -on chronic opiates -Hypothyroidism; on levothyroxine, TSH wnl -Severe pulmonary HTN per Echo, monitor respiratory status -NPO -DVT ppx with heparin -Dispo: home -Code status: FULL code Attestations Medical Necessity Statement*: Patient requires hospitalization for continued management of seizures with altered mental status, IV diuresis for acute CHF exacerbation. Time Spent in Patient Care: Greater than 35 minutes (>than 50% of time spent in counselling and/or direct pt care on unit) . Coding Level of Care Code Acute Director Global Strategic [employer] for Chg Fwd Diagnoses Witnessed seizure R56.9 Lactic acidosis E87.2 Pericardial effusion I31.3 Post-ictal state R56.9 Acute exacerbation of CHF (congestive heart failure) I50.23 Heart failure type: systolic
[2019-09-05 11:28] LABS: Glucose Point of Care 269 mg/dL (70-110)
[2019-09-05] MEDS: morphine 4 mg/mL SDV 1 mL 2 MG IVP ×2 (11:43→20:47)
[2019-09-05 18:24] LABS: Glucose Point of Care 191 mg/dL (70-110)
--- NOTE | 2019-09-05 18:52 | PC.NURSE ---
Bedside report given to NICANOR Foy. Pt had 3450ml output, she is more alert follows commands. Morphine one time given day shift for pain. NO seizure activity noted. Sinus rhythm with PVCs noted.
[2019-09-05 21:00] LABS: Glucose Point of Care 153 mg/dL (70-110)
[2019-09-06] VITALS (11 sets, daily range): BP systolic 137–158; BP diastolic 73–89; PULSE 80–97; RESP 16–34; TEMP 36.1–36.9; O2SAT 94–98
[2019-09-06 05:44] LABS: Basophils # 0.1 10^3/uL (0.0-0.1); Basophils % 0.5 %; Eosinophils # 0.1 10^3/uL (0.0-0.8); Eosinophils % 0.5 %; Hematocrit 40.3 % (37.0-47.0); Lymphocytes # 1.8 10^3/uL (0.8-4.8); Lymphocytes % 18.9 %; Mean Corpuscular HGB Conc 29.8 g/dL (30.0-36.0); Mean Corpuscular Hemoglobin 24.2 pg (28.0-34.0); Mean Corpuscular Volume 81.4 fL (81-99); Mean Platelet Volume 9.6 fL (7.4-10.4); Monocytes # 0.7 10^3/uL (0.2-0.9); Neutrophils # 7.1 10^3/uL (1.8-7.7); Neutrophils % 72.7 %; Nucleated Red Blood Cells % 0 %; Platelet Count 258 10^3/cmm (130-400); Red Blood Count 4.95 10^6/uL (4.1-5.3); Red Cell Distribution Width 16.6 % (12.1-15.1); White Blood Count 9.8 10^3/uL (4.0-10.0)
[2019-09-06 06:01] LABS: Alanine Aminotransferase 15 U/L (0-33); Albumin Level 3.2 g/dL (3.5-5.2); Alkaline Phosphatase 70 IU/L (35-105); Anion Gap 18.8 (5-19); Aspartate Amino Transferase 30 U/L (0-32); Blood Urea Nitrogen 24 mg/dL (8-23); Calcium 9.4 mg/dL (8.5-10.5); Carbon Dioxide 25 mmol/L (22-29); Chloride 96 mmol/L (98-107); Globulin 3.7 g/dL (1.3-4.6); Glucose 139 mg/dL (65-115); Osmolality Calculated 283 mOsm/kg (285-295); Sodium 137 mmol/L (136-145); Total Bilirubin 0.5 mg/dL (0.15-1.2); Total Protein 6.9 g/dL (6.6-8.7)
[2019-09-06 06:05] LABS: Potassium 2.8 mmol/L (3.5-5.1)
[2019-09-06] MEDS: cefTRIAXone 1,000 MG in sodium chloride 0.9% (plus) 50 ML 100 MG IV (06:12)
[2019-09-06 06:15] LABS: Estmated Average Glucose 206; Hemoglobin A1C 8.8 % (4.0-6.0)
[2019-09-06] MEDS: potassium chloride premix 40 MEQ/100 ML PREMIX 25 MEQ IV ×2 (08:02→12:07)
[2019-09-06] MEDS: lidocaine 1% INJ 20 mL 5 ML IV ×2 (08:03→12:07)
[2019-09-06] MEDS: levothyroxine 50 mcg Tablet PO (08:10)
[2019-09-06] MEDS: acetaminophen 325 mg Tablet 650 MG PO ×2 (08:10→15:41)
--- NOTE | 2019-09-06 08:20 | PC.NURSE ---
Pt appears to be back at her baseline., she is alert today. Compalining of being thirsty. Bedside swallow eval done. Pt passed.
[2019-09-06 08:30] LABS: Glucose Point of Care 131 mg/dL (70-110)
[2019-09-06 11:24] LABS: Glucose Point of Care 166 mg/dL (70-110)
[2019-09-06] MEDS: heparin 5,000 unit/mL INJ 1 mL 5000 UNIT SUBCUT ×2 (11:48→23:04)
[2019-09-06] MEDS: FUROsemide 10 mg/mL SDV 4mL 40 MG IVP ×2 (11:48→23:04)
[2019-09-06] MEDS: morphine 4 mg/mL SDV 1 mL 2 MG IVP ×2 (12:08→21:22)
--- NOTE | 2019-09-06 12:59 | P.PN_ITS ---
Subjective Subjective: Interval history: AM labs noted, had 1425 mL urine output overnight. Noted to be tachypneic, hypokalemic, K replacement ongoing. Remains NPO. Resting with at bedside, just received morphine for pain, nurse and state she was alert, appropriate, oriented earlier today. Was able to take her oral meds, will start on diet. requests resuming her [employer] woods supplements. Continues to have good urine output. Will transfer to floor. Off 1:1 monitoring. Medications: Reviewed: Yes Medication Review Details: Active Medications Generic Name Dose Route Start Last Admin Trade Name Freq PRN Reason Stop Dose Admin Acetaminophen 650 mg 09/05/19 00:50 09/06/19 08:10 Tylenol PO 650 mg Q6H PRN Administration Mild/Mod Pain Or Temp >/= 101 Dextrose 25 ml 09/04/19 23:54 D50w IVP ONCE PRN hypoglycemia prot ocol Protocol Dextrose 50 ml 09/04/19 23:54 D50w IVP PRN PRN hypoglycemia prot ocol Protocol Furosemide 40 mg 09/05/19 11:45 09/06/19 11:48 Lasix IVP 40 mg Q12H DIANE Administration Glucagon 1 mg 09/04/19 23:54 Glucagen IM ONCE PRN Adult Acute Hypog lycemia Prot. Protocol Heparin Sodium (Be ef Lung) 5,000 unit 09/04/19 23:45 09/06/19 11:48 Heparin SUBCUT 5,000 unit Q12H DIANE Administration Hydralazine HCl 5 mg 09/04/19 23:59 09/05/19 11:44 Apresoline IVP 5 mg Q4H PRN Administration SBP>160 Levetiracetam 1,00 0 mg/ Sodium 110 mls @ 440 mls /hr 09/04/19 21:30 09/06/19 10:15 Chloride IV Infused Q12H DIANE Infusion Ceftriaxone Sodium 1,000 mg/ 50 mls @ 100 mls/ hr 09/05/19 05:45 09/06/19 06:12 Sodium Chloride IV 100 mls/hr Q24H DIANE Administration Protocol Potassium Chloride 40 meq in 100 mls @ 25 mls/hr 09/06/19 06:30 09/06/19 12:07 K-Vernon IV 09/06/19 14:29 25 mls/hr Q4H DIANE Administration Insulin Aspart 0 unit 09/05/19 08:00 09/06/19 11:47 Novolog SUBCUT 2 unit WM&BEDTIME DIANE Administration Protocol Levothyroxine Sodi um 50 mcg 09/05/19 09:00 09/06/19 08:10 Synthroid PO 50 mcg DAILY DIANE Administration Lorazepam 2 mg 09/05/19 00:03 09/05/19 05:19 Ativan IVP 2 mg Q4H PRN Administration ANXIETY Metoprolol Tartrat e 2.5 mg 09/05/19 02:18 Metoprolol Tartr ate IV Q4H PRN tachycardia >120 Morphine Sulfate 2 mg 09/04/19 23:54 09/06/19 12:08 Morphine IVP 2 mg Q6H PRN Administration SEVERE PAIN Naloxone HCl 0.1 mg 09/04/19 23:54 Narcan IVP Q2M PRN OPIATERV amoxicillin Allergy (Unknown, Verified 08/07/19 10:26) Unknown aspirin Allergy (Unknown, Verified 08/07/19 10:26) Unknown fluoxetine [From Prozac] Allergy (Unknown, Verified 08/07/19 10:26) Unknown lisinopril Allergy (Unknown, Verified 08/07/19 10:26) Unknown losartan Allergy (Unknown, Verified 08/07/19 10:26) Unknown olmesartan [From Benicar] Allergy (Unknown, Verified 08/07/19 10:26) Unknown simvastatin Allergy (Unknown, Verified 08/07/19 10:26) Unknown Sulfa (Sulfonamide Antibiotics) Allergy (Unknown, Verified 08/07/19 10:26) Unknown terazosin Allergy (Unknown, Verified 08/07/19 10:26) Unknown Vitals/I&O/Wt Last Vital Signs Temp 98.4 F 09/06/19 04:04 Pulse 87 09/06/19 10:30 Resp 31 H 09/06/19 12:08 BP 157/81 09/06/19 04:04 Pulse Ox 96 09/06/19 12:08 09/05/19 09/06/19 09/06/19 22:59 06:59 14:59 Intake Total 110 / 220 210 / 210 Output Total 1650 / 3650 1225 / 4875 Balance -1540 / -3430 -1225 / -4655 210 / 210 Weight last 48 hrs Weight 63.049 kg Physical Exam Const: OTHER: -easier to arouse HENMT: COMMON NORMALS: normocephalic and head/scalp atraumatic HEAD & SCALP: normocephalic and atraumatic MOUTH: moist mucous membranes abnormal Details: parched Eye: COMMON NORMALS: PERRL and conjunctivae normal CONJUNCTIVA: Yes conjunctivae normal PUPIL: Yes PERRL Neck/C-Spine: COMMON NORMALS: full ROM GENERAL: Yes normal visual inspection and Yes trachea midline Resp: COMMON NORMALS: normal respiratory effort, no retractions and no use of accessory muscles EFFORT & INSPECTION: Yes symmetric chest movement and Yes tachypneic AUSCULTATION: crackles OTHER: - mouth breather Cardio: COMMON NORMALS: regular rate, S1 normal heart sound, S2 normal heart sound and no murmurs RATE: regular rate RHYTHM: abnormal rhythm irregularly irregular HEART SOUNDS: S1 normal and S2 normal GI: COMMON NORMALS: normal to inspection, nondistended, normoactive bowel sounds and soft to palpation PALPATION: Yes soft : BLADDER/KIDNEY EXAM: Yes catheter in place Catheter type (Female): urethral Extremity: COMMON NORMALS: normal to inspection, full ROM and no clubbing, cyanosis or edema; negative for no pedal edema NARRATIVE EXTREMITY EXAM: -s/p LLE BKA Neuro: OTHER: -unable to assess due to somnolence Psych: OTHER: -unable to assess due to somnolence Skin: COMMON NORMALS: no rashes or lesions noted, no jaundice, no petechiae and no mottling GENERAL SKIN EXAM: no rashes or lesions noted Urinary Catheter Management^: Norris: Cath Placed During This Visit: yes Urethral Indwelling: Yes Reason for Continuing Indwelling Catheter: Accurate Measurement of Urinary Output in Critically Ill Patients Urinary Catheter Date of Insertion: 09/04/19 Urinary Catheter Time of Insertion: 21:20 Data : 09/06/19 04:15 09/06/19 04:15 Micro: Microbiology 09/04/19 21:26 Blood Culture - Preliminary Blood NEGATIVE TO DATE 09/04/19 21:25 Blood Culture - Preliminary Blood NEGATIVE TO DATE A&P Assessment and plan (1) Witnessed seizure: -Noted to have a witnessed tonic-clonic seizure in ER, reported seizure- like episode at home. No noted AEDs per med list -Mental status remains altered likely secondary to postictal state -Fall, aspiration, seizure precautions -Continue IV Keppra; switch to oral -Noted CT head which is unremarkable for any acute findings -CPK wnl (99), UDS positive for opiates and benzos Status: Acute Code(s): R56.9 - Unspecified convulsions (2) Lactic acidosis: -UA noted to be positive for bacteria, pyuria, hematuria; negative nitrite/LE -continue Ceftriaxone -low grade temp-100.2 F yesterday, has been afebrile since -lactic acidosis also likely due to seizure episodes; trending down (5.7->3.4) -no IVF secondary to CHF exacerbation -urine cx: GNRs, pending ID & sensitivity -blood cx prelim negative Status: Acute Code(s): E87.2 - Acidosis (3) Pericardial effusion: -noted to have small to moderate pericardical effusion on Echo, EF-30%, global LV hypokinesis, severe pulmonary HTN -has been noted to have non-hemodynamically significant pericardial effusion on Echo done in 04/2018, opted for medical management with diuretics -received 40 mg dose of IV Lasix overnight; continue diuresis, BNP > 14,000, noted evidence of interstitial edema on imaging. Continue IV diuresis -daily weights, monitor Is & Os -continue to monitor renal function, lytes, replace as needed Status: Acute Code(s): I31.3 - Pericardial effusion (noninflammatory) (4) Post-ictal state: -secondary to seizure episodes -noted above -NPO until mental status improves Status: Acute Code(s): R56.9 - Unspecified convulsions (5) Acute exacerbation of CHF (congestive heart failure): -received 40 mg dose of IV Lasix overnight; continue diuresis, BNP > 14,000, noted evidence of interstitial edema on imaging -daily weights, monitor Is & Os, has Norris catheter, assess daily for removal -Echo noted above -continue to monitor vital signs -telemetry monitoring Status: Acute Qualifiers: Heart failure type: systolic Qualified Code(s): I50.23 - Acute on chronic systolic (congestive) heart failure Code(s): I50.9 - Heart failure, unspecified Additional A&P Information -Peripheral vascular disease; on Plavix, s/p LLE BKA, follows up with Dr. Parikh in [place] -hx of atrial fibrillation; takes bernarda woods and dandelion herbal supplements for this and CHF -IDDM type II; A1c-8.8, accucheks, ISS -CKD stage 2; baseline Cr wnl -on chronic opiates -Hypothyroidism; on levothyroxine, TSH wnl -Severe pulmonary HTN per Echo, continue to monitor respiratory status -NPO; more alert, will start on diet -DVT ppx with heparin -Dispo: home -Code status: FULL code -transfer to floor for continued care Attestations Medical Necessity Statement*: Patient requires hospitalization for continued diuresis, monitoring of mental status pending improvement, treatment of UTI. Time Spent in Patient Care: 16 - 35 minutes (>than 50% of time spent in counselling and/or direct pt care on unit) . 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
--- NOTE | 2019-09-06 15:15 | PC.NURSE ---
Pt took 2 [place] bery supplement capsules brought from home.
[2019-09-06 17:22] LABS: Glucose Point of Care 184 mg/dL (70-110)
--- NOTE | 2019-09-06 17:50 | PC.NURSE ---
Report faxed to [employer]. Further vebral report given to Yelena. Pt transferred to [facility]- via bed. All belongings including string with bead necklace, [place] woods capsules and upper dentures with poligrip supply.
[2019-09-06] MEDS: oxyCODONE 5 mg IR Tab/Cap 10 MG PO (18:35)
[2019-09-06 19:05] LABS: Glucose Point of Care 171 mg/dL (70-110)
[2019-09-06 20:42] LABS: Glucose Point of Care 207 mg/dL (70-110)
[2019-09-06] MEDS: LORazepam 2 mg/mL INJ 1 mL IVP (21:20)
[2019-09-07] VITALS (17 sets, daily range): BP systolic 116–148; BP diastolic 68–88; PULSE 82–99; RESP 14–18; TEMP 36.4–37.1; O2SAT 92–98
[2019-09-07] MEDS: oxyCODONE 5 mg IR Tab/Cap 10 MG PO ×4 (01:32→19:34)
[2019-09-07] MEDS: morphine 4 mg/mL SDV 1 mL 2 MG IVP ×3 (03:16→19:34)
[2019-09-07] MEDS: cefTRIAXone 1,000 MG in sodium chloride 0.9% (plus) 50 ML 100 MG IV (04:45)
[2019-09-07 06:26] LABS: Basophils # 0.1 10^3/uL (0.0-0.1); Basophils % 0.8 %; Eosinophils # 0.1 10^3/uL (0.0-0.8); Eosinophils % 1.7 %; Hematocrit 38.5 % (37.0-47.0); Hemoglobin 11.8 g/dL (11.5-15.3); Lymphocytes # 1.5 10^3/uL (0.8-4.8); Lymphocytes % 19.2 %; Mean Corpuscular HGB Conc 30.6 g/dL (30.0-36.0); Mean Corpuscular Hemoglobin 24.3 pg (28.0-34.0); Mean Corpuscular Volume 79.2 fL (81-99); Monocytes # 0.5 10^3/uL (0.2-0.9); Monocytes % 6.9 %; Neutrophils # 5.4 10^3/uL (1.8-7.7); Nucleated Red Blood Cells % 0 %; Platelet Count 280 10^3/cmm (130-400); Red Blood Count 4.86 10^6/uL (4.1-5.3); Red Cell Distribution Width 16.5 % (12.1-15.1); White Blood Count 7.6 10^3/uL (4.0-10.0)
[2019-09-07 06:38] LABS: Glucose Point of Care 203 mg/dL (70-110)
[2019-09-07 06:51] LABS: Alanine Aminotransferase 16 U/L (0-33); Albumin Level 3.1 g/dL (3.5-5.2); Alkaline Phosphatase 68 IU/L (35-105); Anion Gap 12.4 (5-19); Aspartate Amino Transferase 23 U/L (0-32); Blood Urea Nitrogen 30 mg/dL (8-23); Carbon Dioxide 32 mmol/L (22-29); Chloride 98 mmol/L (98-107); Globulin 3.4 g/dL (1.3-4.6); Glucose 225 mg/dL (65-115); Osmolality Calculated 292 mOsm/kg (285-295); Potassium 3.4 mmol/L (3.5-5.1); Sodium 139 mmol/L (136-145); Total Bilirubin 0.4 mg/dL (0.15-1.2); Total Protein 6.5 g/dL (6.6-8.7)
[2019-09-07] MEDS: levothyroxine 50 mcg Tablet PO (08:13)
--- NOTE | 2019-09-07 10:55 | PC.SOCIAL ---
Pg 2 IMM Explained to pt & spouse Pg 2 IMM. They verbally understand. No questions voiced. Provided pt a signed copy & left on pt's bedside table. Signed, dated, & timed a copy & placed in pt's chart.
[2019-09-07] MEDS: heparin 5,000 unit/mL INJ 1 mL 5000 UNIT SUBCUT (11:45)
[2019-09-07] MEDS: FUROsemide 10 mg/mL SDV 4mL 40 MG IVP (11:45)
[2019-09-07 12:24] LABS: Glucose Point of Care 266 mg/dL (70-110)
[2019-09-07] MEDS: potassium chloride oral liq 20 mEq/15 mL UDC 40 MEQ PO (16:53)
[2019-09-07 17:05] LABS: Glucose Point of Care 282 mg/dL (70-110)
[2019-09-07] MEDS: cefUROXime 250 mg Tablet PO (17:39)
--- NOTE | 2019-09-07 19:17 | PM.PN ---
Subjective Subjective: Interval history: Patient seen and examined, at bedside, sitting up in bed, is awake, alert and conversant. Reports pain though per has chronic pain issues at baseline. She is quite concerned as she has not had a bowel movement though had also not been alert enough to eat for at least 24 to 48 hours. Had 350 mL urine output overnight. Concerned about her ability to transfer in and out of bed so we will have PT evaluate. Vital signs stable. Medications: Reviewed: Yes Medication Review Details: Active Medications Generic Name Dose Route Start Last Admin Trade Name Freq PRN Reason Stop Dose Admin Acetaminophen 650 mg 09/05/19 00:50 09/06/19 15:41 Tylenol PO 650 mg Q6H PRN Administration Mild/Mod Pain Or Temp >/= 101 Cefuroxime Axetil 250 mg 09/07/19 18:00 09/07/19 17:39 Ceftin PO 250 mg BID DIANE Administration Protocol Dextrose 25 ml 09/04/19 23:54 D50w IVP ONCE PRN hypoglycemia prot ocol Protocol Dextrose 50 ml 09/04/19 23:54 D50w IVP PRN PRN hypoglycemia prot ocol Protocol Furosemide 40 mg 09/08/19 08:00 Lasix PO DAILY@0800 DIANE Glucagon 1 mg 09/04/19 23:54 Glucagen IM ONCE PRN Adult Acute Hypog lycemia Prot. Protocol Heparin Sodium (Be ef Lung) 5,000 unit 09/04/19 23:45 09/07/19 11:45 Heparin SUBCUT 5,000 unit Q12H DIANE Administration Hydralazine HCl 5 mg 09/04/19 23:59 09/05/19 11:44 Apresoline IVP 5 mg Q4H PRN Administration SBP>160 Insulin Aspart 0 unit 09/05/19 08:00 09/07/19 17:39 Novolog SUBCUT 8 unit WM&BEDTIME DIANE Administration Protocol Lactulose 10 gm 09/07/19 19:20 Constulose PO DAILY DIANE Levetiracetam 1,000 mg 09/07/19 21:00 Keppra PO BID DIANE Levothyroxine Sodi um 50 mcg 09/05/19 09:00 09/07/19 08:13 Synthroid PO 50 mcg DAILY DIANE Administration Lorazepam 2 mg 09/05/19 00:03 09/06/19 21:20 Ativan IVP 2 mg Q4H PRN Administration ANXIETY Methylnaltrexone B romide 12 mg 09/07/19 19:17 Relistor SUBCUT 09/07/19 19:18 ONCE ONE Metoprolol Tartrat e 2.5 mg 09/05/19 02:18 Metoprolol Tartr ate IV Q4H PRN tachycardia >120 Morphine Sulfate 2 mg 09/04/19 23:54 09/07/19 10:00 Morphine IVP 2 mg Q6H PRN Administration SEVERE PAIN Naloxone HCl 0.1 mg 09/04/19 23:54 Narcan IVP Q2M PRN OPIATERV Non-Formulary Medi cation 500 mg 09/07/19 09:00 09/07/19 06:57 [place] [[place]] PO Not Given DAILY DIANE Oxycodone HCl 10 mg 09/06/19 18:07 09/07/19 09:59 Oxycodone Ir PO 10 mg Q4H PRN Administration SEVERE PAIN Senna/Docusate Sod ium 2 tab 09/08/19 09:00 Senna-S PO BID DIANE amoxicillin Allergy (Unknown, Verified 08/07/19 10:26) Unknown aspirin Allergy (Unknown, Verified 08/07/19 10:26) Unknown fluoxetine [From Prozac] Allergy (Unknown, Verified 08/07/19 10:26) Unknown lisinopril Allergy (Unknown, Verified 08/07/19 10:26) Unknown losartan Allergy (Unknown, Verified 08/07/19 10:26) Unknown olmesartan [From Benicar] Allergy (Unknown, Verified 08/07/19 10:26) Unknown simvastatin Allergy (Unknown, Verified 08/07/19 10:26) Unknown Sulfa (Sulfonamide Antibiotics) Allergy (Unknown, Verified 08/07/19 10:26) Unknown terazosin Allergy (Unknown, Verified 08/07/19 10:26) Unknown Vitals/I&O/Wt Last Vital Signs Temp 98.6 F 09/07/19 15:27 Pulse 88 09/07/19 15:27 Resp 16 09/07/19 15:27 BP 119/68 09/07/19 15:27 Pulse Ox 98 09/07/19 15:27 09/07/19 09/07/19 09/07/19 06:59 14:59 22:59 Intake Total 290 / 950 480 / 480 240 / 720 Output Total 350 / 1350 900 / 900 Balance -60 / -400 480 / 480 -660 / -180 Weight last 48 hrs Weight 63.56 kg Weight 63.321 kg Physical Exam Const: COMMON NORMALS: oriented x3 NUTRITIONAL APPEARANCE: thin ORIENTATION/CONSCIOUSNESS: Yes awake HENMT: COMMON NORMALS: normocephalic and head/scalp atraumatic HEAD & SCALP: normocephalic and atraumatic MOUTH: moist mucous membranes abnormal Details: parched Eye: COMMON NORMALS: PERRL and conjunctivae normal CONJUNCTIVA: Yes conjunctivae normal PUPIL: Yes PERRL Neck/C-Spine: COMMON NORMALS: full ROM GENERAL: Yes normal visual inspection and Yes trachea midline Resp: COMMON NORMALS: normal respiratory effort, no retractions, no use of accessory muscles and clear to auscultation bilaterally EFFORT & INSPECTION: Yes symmetric chest movement AUSCULTATION: clear to auscultation bilaterally OTHER: - mouth breather Cardio: COMMON NORMALS: regular rate, S1 normal heart sound, S2 normal heart sound and no murmurs RATE: regular rate RHYTHM: abnormal rhythm irregularly irregular HEART SOUNDS: S1 normal and S2 normal GI: COMMON NORMALS: normal to inspection, nondistended, normoactive bowel sounds and soft to palpation PALPATION: Yes soft : BLADDER/KIDNEY EXAM: Yes catheter in place Catheter type (Female): urethral Extremity: COMMON NORMALS: normal to inspection, full ROM and no clubbing, cyanosis or edema; negative for no pedal edema NARRATIVE EXTREMITY EXAM: -s/p LLE BKA Neuro: COMMON NORMALS: oriented x3 Psych: COMMON NORMALS: mental status grossly normal, thought process normal, cooperative, affect normal and speech normal SPEECH: Yes normal speech THOUGHT PROCESS: normal thought process Skin: COMMON NORMALS: no rashes or lesions noted, no jaundice, no petechiae and no mottling GENERAL SKIN EXAM: no rashes or lesions noted Urinary Catheter Management^: Norris: Cath Placed During This Visit: yes Urethral Indwelling: Yes Reason for Continuing Indwelling Catheter: Accurate Measurement of Urinary Output in Critically Ill Patients Urinary Catheter Date of Insertion: 09/04/19 Urinary Catheter Time of Insertion: 21:20 Data : 09/07/19 06:06 09/07/19 06:06 Micro: Microbiology 09/04/19 21:20 Urine Culture - Final Urine,Clean Catch Escherichia coli A&P Assessment and plan (1) Witnessed seizure: -Noted to have a witnessed tonic-clonic seizure in ER, reported seizure-like episode at home. No noted AEDs per med list -Mental status remains altered likely secondary to postictal state -Fall, aspiration, seizure precautions -Continue PO Keppra -Noted CT head which is unremarkable for any acute findings -CPK wnl (99), UDS positive for opiates and benzos Status: Acute Code(s): R56.9 - Unspecified convulsions (2) Lactic acidosis: -UA noted to be positive for bacteria, pyuria, hematuria; negative nitrite/LE -continue Ceftriaxone; switch to Cefuroxime -low grade temp-100.2 F yesterday, has been afebrile since -lactic acidosis also likely due to seizure episodes; trending down (5.7->3.4) -no IVF secondary to CHF exacerbation -urine cx: E.coli, noted sensitivity -blood cx prelim negative Status: Acute Code(s): E87.2 - Acidosis (3) Pericardial effusion: -noted to have small to moderate pericardical effusion on Echo, EF-30%, global LV hypokinesis, severe pulmonary HTN -has been noted to have non-hemodynamically significant pericardial effusion on Echo done in 04/2018, opted for medical management with diuretics -received 40 mg dose of IV Lasix overnight; continue diuresis, BNP > 14,000, noted evidence of interstitial edema on imaging. Continue IV diuresis -daily weights, monitor Is & Os -continue to monitor renal function, lytes, replace as needed Status: Acute Code(s): I31.3 - Pericardial effusion (noninflammatory) (4) Post-ictal state: -secondary to seizure episodes -noted above -NPO until mental status improves Status: Acute Code(s): R56.9 - Unspecified convulsions (5) Acute exacerbation of CHF (congestive heart failure): -received 40 mg dose of IV Lasix overnight; continue diuresis, BNP > 14,000, noted evidence of interstitial edema on imaging -daily weights, monitor Is & Os, has Norris catheter, d/c today -Echo noted above -continue to monitor vital signs -telemetry monitoring Status: Acute Qualifiers: Heart failure type: systolic Qualified Code(s): I50.23 - Acute on chronic systolic (congestive) heart failure Code(s): I50.9 - Heart failure, unspecified Additional A&P Information -Peripheral vascular disease; on Plavix, s/p LLE BKA, follows up with Dr. Parikh in [place] -hx of atrial fibrillation; takes [place] woods and dandelion herbal supplements for this and CHF -IDDM type II; A1c-8.8, accucheks, ISS -CKD stage 2; baseline Cr wnl -on chronic opiates with associated constipation; give dose of Relistor; resume bowel regimen -Hypothyroidism; on levothyroxine, TSH wnl -Severe pulmonary HTN per Echo, continue to monitor respiratory status -on GI soft cardiac diet due to being edentulous -DVT ppx with heparin -Dispo: home -Code status: FULL code Attestations Medical Necessity Statement*: Patient requires hospitalization for continued UTI treatment as well as pending PT evaluation. Time Spent in Patient Care: 16 - 35 minutes (>than 50% of time spent in counselling and/or direct pt care on unit). Coding Level of Care Code Acute Business Quality Assurance Analyst for Chg Fwd Diagnoses Witnessed seizure R56.9 Lactic acidosis E87.2 Pericardial effusion I31.3 Post-ictal state R56.9 Acute exacerbation of CHF (congestive heart failure) I50.23 Heart failure type: systolic
[2019-09-07] MEDS: levETIRAcetam 500 mg Tablet 1000 MG PO (19:35)
[2019-09-07] MEDS: lactulose oral liq 20 gm/30 mL UDC 10 GM PO (19:43)
[2019-09-07] MEDS: methylnaltrexone 12 /0.6 mL INJ 12 MG SUBCUT (19:44)
[2019-09-07 21:14] LABS: Glucose Point of Care 210 mg/dL (70-110)
[2019-09-08] VITALS (9 sets, daily range): BP systolic 116–145; BP diastolic 63–78; PULSE 88–102; RESP 16–18; TEMP 37–37.1; O2SAT 96–99; BMI 24.0
[2019-09-08] MEDS: oxyCODONE 5 mg IR Tab/Cap 10 MG PO ×3 (00:19→12:12)
[2019-09-08] MEDS: heparin 5,000 unit/mL INJ 1 mL 5000 UNIT SUBCUT ×2 (00:19→11:17)
--- NOTE | 2019-09-08 01:11 | ECG_ITS ---
Measurements Intervals [place] Rate: 95 P: UT: 0 QRS: -40 QRSD: 177 T: 122 QT: 412 QTc: 519 ATRIAL FIBRILLATION WITH ABERRANT CONDUCTION OR VENTRICULAR PREMATURE COMPLEXES MARKED LEFT AXIS DEVIATION [QRS AXIS < -30] INTRAVENTRICULAR CONDUCTION DELAY [130+ ms QRS DURATION] Compared to ECG 05/17/2018 23:46:29 Ventricular premature complex(es) now present Aberrant conduction of supraventricular beat(s) now present Left-axis deviation now present Intraventricular conduction delay now present Sinus rhythm no longer present First degree AV block no longer present Left bundle-branch block no longer present Electronically Signed On 09-08-2019 20:36:01 CDT by Dima Plunkett M.D. [email or web address]
[2019-09-08] MEDS: morphine 4 mg/mL SDV 1 mL 2 MG IVP ×2 (02:27→12:12)
[2019-09-08 03:44] LABS: Alanine Aminotransferase 17 U/L (0-33); Albumin Level 3.3 g/dL (3.5-5.2); Alkaline Phosphatase 79 IU/L (35-105); Anion Gap 12.8 (5-19); Aspartate Amino Transferase 22 U/L (0-32); Blood Urea Nitrogen 24 mg/dL (8-23); Calcium 9.2 mg/dL (8.5-10.5); Carbon Dioxide 29 mmol/L (22-29); Chloride 95 mmol/L (98-107); Globulin 3.4 g/dL (1.3-4.6); Glucose 289 mg/dL (65-115); Magnesium 1.6 mg/dL (1.7-2.3); Osmolality Calculated 283 mOsm/kg (285-295); Potassium 3.8 mmol/L (3.5-5.1); Sodium 133 mmol/L (136-145); Total Bilirubin 0.4 mg/dL (0.15-1.2); Total Protein 6.7 g/dL (6.6-8.7)
[2019-09-08] MEDS: potassium chloride oral liq 20 mEq/15 mL UDC PO (04:41)
[2019-09-08 06:47] LABS: Glucose Point of Care 292 mg/dL (70-110)
[2019-09-08] MEDS: FUROsemide 40 mg Tablet PO (08:00)
[2019-09-08] MEDS: levothyroxine 50 mcg Tablet PO (08:01)
[2019-09-08] MEDS: levETIRAcetam 500 mg Tablet 1000 MG PO (08:01)
[2019-09-08] MEDS: cefUROXime 250 mg Tablet PO (08:01)
--- NOTE | 2019-09-08 08:44 | PM.DCS ---
Discharge Providers Date of Admission: 09/04/19 22:40 Date of Discharge: September 08, 2019 Attending Provider at Admission: Leyla Bhatia MD Attending Provider at Discharge: Autumn Babb MD Primary Care Provider: Baljit Aponte APN Diagnoses at Discharge Discharge Diagnosis (1) Witnessed seizure: Status: Acute Problem details: -Noted to have a witnessed tonic-clonic seizure in ER, reported seizure-like episode at home. No noted AEDs per med list -Mental status remains altered likely secondary to postictal state -Fall, aspiration, seizure precautions -Continue PO Keppra -Noted CT head which is unremarkable for any acute findings -CPK wnl (99), UDS positive for opiates and benzos (2) Lactic acidosis: Status: Acute Problem details: -UA noted to be positive for bacteria, pyuria, hematuria; negative nitrite/LE -continue Ceftriaxone; switch to Cefuroxime -low grade temp-100.2 F yesterday, has been afebrile since -lactic acidosis also likely due to seizure episodes; trending down (5.7->3.4) -no IVF secondary to CHF exacerbation -urine cx: E.coli, noted sensitivity -blood cx prelim negative (3) Pericardial effusion: Status: Acute Problem details: -noted to have small to moderate pericardical effusion on Echo, EF-30%, global LV hypokinesis, severe pulmonary HTN -has been noted to have non-hemodynamically significant pericardial effusion on Echo done in 04/2018, opted for medical management with diuretics -received 40 mg dose of IV Lasix overnight; continue diuresis, BNP > 14,000, noted evidence of interstitial edema on imaging. Continue IV diuresis -daily weights, monitor Is & Os -continue to monitor renal function, lytes, replace as needed (4) Post-ictal state: Status: Resolved Problem details: secondary to seizure episodes -noted above -mental status improved, tolerating oral intake without difficulty (5) Acute exacerbation of CHF (congestive heart failure): Status: Acute Problem details: -received 40 mg dose of IV Lasix overnight; continue diuresis, BNP > 14,000, noted evidence of interstitial edema on imaging -daily weights, monitor Is & Os, has Norris catheter, d/c today -Echo noted above -continue to monitor vital signs -telemetry monitoring Qualifiers: Heart failure type: systolic Qualified Code(s): I50.23 - Acute on chronic systolic (congestive) heart failure Other Information Additional DC diagnoses/information: -Peripheral vascular disease; on Plavix, s/p LLE ADOLFO, follows up with Dr. Parkih in [place] -hx of atrial fibrillation; takes bernarda woods and dandelion herbal supplements for this and CHF -IDDM type II; A1c-8.8, accucheks, ISS -CKD stage 2; baseline Cr wnl -on chronic opiates with associated constipation; give dose of Relistor; resume bowel regimen -Hypothyroidism; on levothyroxine, TSH wnl -Severe pulmonary HTN per Echo, continue to monitor respiratory status Reason for Visit Reason for Visit: Reason For Visit: ams Hospital Course Hospital Course: Patient was initially admitted to ICU secondary to significant altered mental status and previously witnessed seizure like activity. She was started on IV Keppra with close monitoring of her neurological status. She was also found to have a UTI so was started on empiric IV antibiotics pending culture results. She was noted to have small to moderate pericardial effusion, elevated BNP and was started on IV diuresis. With time her mental status gradually improved and with she has diuresed well with a negative balance of 4.3 L. She had a Norris catheter placed in the ER secondary to altered mental status that has since been discontinued and she has been able to void without difficulty. She has a known history of chronic atrial fibrillation for which she takes [place] supplements per her which keep her heart rate under control. Once consistently awake and alert her medications were switched to p.o. and she was started on a diet. She has had no further witnessed seizure-like activity and will be continued on Keppra. She will be evaluated by physical therapy and feels comfortable going home today with assistance from her as needed. Discharge Summary: -Patient to follow-up with primary care provider within 1 week -Patient to keep scheduled appointment with Dr. Noble at the pain clinic on 09/12/19 Physical Exam Const: COMMON NORMALS: oriented x3 NUTRITIONAL APPEARANCE: thin ORIENTATION/CONSCIOUSNESS: Yes awake HENMT: COMMON NORMALS: normocephalic and head/scalp atraumatic HEAD & SCALP: normocephalic and atraumatic MOUTH: moist mucous membranes abnormal Details: parched Eye: COMMON NORMALS: PERRL and conjunctivae normal CONJUNCTIVA: Yes conjunctivae normal PUPIL: Yes PERRL Neck/C-Spine: COMMON NORMALS: full ROM GENERAL: Yes normal visual inspection and Yes trachea midline Resp: COMMON NORMALS: normal respiratory effort, no retractions, no use of accessory muscles and clear to auscultation bilaterally EFFORT & INSPECTION: Yes symmetric chest movement AUSCULTATION: clear to auscultation bilaterally OTHER: - mouth breather Cardio: COMMON NORMALS: regular rate, S1 normal heart sound, S2 normal heart sound and no murmurs RATE: regular rate RHYTHM: abnormal rhythm irregularly irregular HEART SOUNDS: S1 normal and S2 normal GI: COMMON NORMALS: normal to inspection, nondistended, normoactive bowel sounds and soft to palpation PALPATION: Yes soft : BLADDER/KIDNEY EXAM: Yes catheter in place Catheter type (Female): urethral Extremity: COMMON NORMALS: normal to inspection, full ROM and no clubbing, cyanosis or edema; negative for no pedal edema NARRATIVE EXTREMITY EXAM: -s/p LLE BKA Neuro: COMMON NORMALS: oriented x3 Psych: COMMON NORMALS: mental status grossly normal, thought process normal, cooperative, affect normal and speech normal SPEECH: Yes normal speech THOUGHT PROCESS: normal thought process Skin: COMMON NORMALS: no rashes or lesions noted, no jaundice, no petechiae and no mottling GENERAL SKIN EXAM: no rashes or lesions noted Urinary Catheter Management^: Norris: Cath Placed During This Visit: yes, but has since been removed by the nurse Urethral Indwelling: Yes Reason for Continuing Indwelling Catheter: Decision to DC Catheter Urinary Catheter Date of Insertion: 09/04/19 Urinary Catheter Time of Insertion: 21:20 Date Urinary Catheter Removed: 09/08/19 Time Urinary Catheter Discontinued: 06:00 Discharge Data Data Completed and Pending: Completed Studies During Hospitalization Category Date Time Status CT head wo con* 7 0450 Stat Cat Scan 09/04/19 20:37 Completed XR chest 1V neno ble [id number] Stat Exams 09/04/19 20:38 Completed CV echo complete* [id number] Routine Ultrasound 09/05/19 02:20 Completed Pending at discharge Category Date Time Status Blood Culture Sta t Lab 09/04/19 21:26 Results Labs from last 24 hours 09/08/19 09/08/19 09/07/19 06:43 03:10 21:04 Sodium 133 L Potassium 3.8 Chloride 95 L Carbon Dioxide 29 Anion Gap 12.8 BUN 24 H Creatinine 1.0 H Glucose 289 H POC Glucose 292 210 Calculated Osmolal ity 283 L Calcium 9.2 Magnesium 1.6 L Total Bilirubin 0.4 AST 22 ALT 17 Alkaline Phosphata se 79 Total Protein 6.7 Albumin 3.3 L Globulin 3.4 09/07/19 09/07/19 16:56 11:00 Sodium Potassium Chloride Carbon Dioxide Anion Gap BUN Creatinine Glucose POC Glucose 282 266 Calculated Osmolal ity Calcium Magnesium Total Bilirubin AST ALT Alkaline Phosphata se Total Protein Albumin Globulin Vitals: Last Vital Signs Temp 98.8 F 09/08/19 07:27 Pulse 101 H 09/08/19 07:27 Resp 18 09/08/19 07:27 BP 116/74 09/08/19 07:27 Pulse Ox 99 09/08/19 07:27 Discharge Plan Discharge Patient Disposition: Home, Self-Care Condition: Stable Prescriptions: New furosemide 40 mg Tablet 40 mg PO DAILY 30 Days Qty: 30 RF: 0 cefuroxime axetil 250 mg Tablet 250 mg PO BID 7 Days Qty: 14 RF: 0 levetiracetam 500 mg Tablet 1,000 mg PO BID 30 Days Qty: 120 RF: 0 sennosides-docusate sodium 8.6-50 mg Tablet 2 tab PO BID 30 Days Qty: 120 RF: 0 lactulose 20 gram/30 mL Solution 10 g PO DAILY Qty: 237 RF: 0 oxycodone 30 mg tablet 30 mg PO Q4H PRN (Reason: severe pain) Qty: 30 RF: 0 Continued clopidogrel [Plavix] 75 mg tablet 75 mg PO DAILY RF: 0 nitroglycerin [Nitrostat] 0.4 mg tablet, sublingual 0.4 mg SUBLINGUAL Q5M PRN (Reason: CHEST PAINS) RF: 0 vitamin B complex [B Complex-Vitamin B12] Tablet 1 tab PO DAILY RF: 0 levothyroxine 50 mcg capsule 50 mcg PO DAILY RF: 0 insulin aspart U-100 [Novolog Flexpen U-100 Insulin] 100 unit/mL (3 mL) insulin pen 5 unit SUBCUT .sliding scale RF: 0 cholecalciferol (vitamin D3) 400 unit capsule 400 unit PO DAILY RF: 0 milk thistle 500 mg capsule 1,000 mg PO DAILY RF: 0 folic acid 20 mg Capsule 20 mg PO DAILY RF: 0 [place] 500 mg Capsule 500 mg PO DAILY RF: 0 ginkgo biloba 120 mg Tablet 120 mg PO BID RF: 0 Discontinued hydralazine 25 mg tablet 25 mg PO TID PRN (Reason: UNKNOWN) RF: 0 Discharge Orders: Discharge Order (Routine); Ordered 09/08/19 Ordered By: Autumn Babb Referrals: Elías Noble MD [Referring] - 09/12/19 (Please keep scheduled appointment. You have an appointment with Dr. Noble September 12, 2019. Call Monday to verify time and date.) Baljit Aponte, FITTING ROOM ATTENDANT [Primary Care Provider] - 4-7 days (Post hospital discharge follow up. Treated for UTI, seizures. Please call Monday and make a Follow up appointment with Primary care Fay Smiley in 4-7 days.) Discharge Diet: Usual diet Discharge Activity: Resume usual activity Patient Instructions: Cefuroxime (By mouth), Furosemide (By mouth), Oxycodone/Acetaminophen (By mouth), Laxative, Stimulant (By mouth), Lactulose (By mouth), Levetiracetam (By mouth), Urinary Tract Infection in Women (DC), Altered Mental Status (GEN) Discharge Attestations Time Spent in Discharge Care*: greater than 30 min Specific Discharge Activities: Specific discharge activities: educating patient, educating and/or supporting family/caregiver, discussing with block and case maker/social workers/dc planners, documenting/other paperwork and evaluating patient/reviewing data Status at Discharge: Cognitive status at discharge: cognitively intact, Behavioral status at discharge: cooperative, Functional status at discharge: other assisted ambulation (s/p LLE BKA) Overall status at discharge: patient is back to baseline Quality Metrics Clinical Quality Measures During this hospital stay, did patient experience: None Coding Level of Care Code Acute Digital Production Operator for Chg Fwd Exam Comprehensive Diagnoses Witnessed seizure R56.9 Lactic acidosis E87.2 Pericardial effusion I31.3 Post-ictal state R56.9 Acute exacerbation of CHF (congestive heart failure) I50.23 Heart failure type: systolic
[2019-09-08 11:04] LABS: Glucose Point of Care 254 mg/dL (70-110)
== END 2019-09-08 14:41 | disposition home or self-care (01) | DRG 100 ==
LOC: ER 21:06 → ICU 22:52 → MEDSURG 09-06 17:40
PROVIDERS: Admitting Provider Student in an Organized Health Care Education/Training Program; Emergency Provider Family Medicine; Family Provider Nurse Practitioner Family; PCP Nurse Practitioner Family; Visit Provider Family Medicine
DX: G40.909 Epilepsy, unspecified, not intractable, without status epilepticus (principal); I50.23 Acute on chronic systolic (congestive) heart failure; E87.2 Acidosis; I31.3 Pericardial effusion (noninflammatory); N39.0 Urinary tract infection, site not specified; I13.0 Hypertensive heart and chronic kidney disease with heart failure and stage 1 through stage 4 chronic kidney disease, or unspecified chronic kidney disease; F05 Delirium due to known physiological condition; I48.91 Unspecified atrial fibrillation; N18.2 Chronic kidney disease, stage 2 (mild); E03.9 Hypothyroidism, unspecified; I27.20 Pulmonary hypertension, unspecified; E11.51 Type 2 diabetes mellitus with diabetic peripheral angiopathy without gangrene; I25.10 Atherosclerotic heart disease of native coronary artery without angina pectoris; E87.6 Hypokalemia; Z87.891 Personal history of nicotine dependence; Z79.890 Hormone replacement therapy; Z79.899 Other long term (current) drug therapy
CPT/HCPCS: 12345; 36415; 36416; 36600; 51702; 70450; 71045; 80051; 80053; 80306; 81001; 82550; 82810; 82962; 83036; 83605; 83735; 83880; 83986; 84443; 84484; 85025; 87040; 87077; 87086; 87186; 93005; 93306; 96372; 96375; 97161; 97165; 97530; 99285; J0360; J0696; J1644; J1815; J1940; J1953; J2001; J2060; J2212; J2270; J3475; J3480; J7030; J7799